=== PATIENT | male | born 1955 | race Caucasian/White ===

== ENCOUNTER 2024-05-15 10:27 | Day surgery (SDC) | payer MEDICARE, OTHER ==
[2024-05-11 13:53] VITALS: BMI 34.8
[~2024-05-15 10:27] MED LIST: LIDOCAINE 1% (10MG/ML) FOR IV START INTRADERMA PRN; ONDANSETRON 4 MG/2 ML VIAL IVP PRN
[2024-05-15 11:18] VITALS: TEMP 997.8
[2024-05-15] MEDS: LACTATED RINGERS 1,000 ML IV SCH (11:35)
[2024-05-15] MEDS: IV FLUID CONTINUATION 1,000 ML IV ONE (12:08)
[2024-05-15] MEDS ORDERED: PROPOFOL 10 MG/ML 20 ML VIAL IV ONE (12:22)
--- NOTE | 2024-05-15 12:30 | P.PCN ---
Date of Procedure: 05/15/24 Procedure(s) Performed: BRIEF HISTORY: Patient is a 69-year-old pleasant white male scheduled for an elective colonoscopy as a part of screening for colon cancer. PROCEDURE PERFORMED: Colonoscopy with snare polypectomy. PREOPERATIVE DIAGNOSIS: Screening for colon cancer. IV sedation per Anesthesia. PROCEDURE: After informed consent was obtained, the patient, was brought into the endoscopy unit. IV sedation was administered by Anesthesia under continuous monitoring. Digital rectal examination was normal. Initially the Olympus CF-160 flexible video colonoscope was then inserted in the rectum, gradually advanced into the cecum without any difficulty. Careful examination was performed as the scope was gradually being withdrawn. Ileocecal valve and the appendiceal orifice were visualized and appeared normal. Prep was excellent. Mucosa of the cecum, had a 5 mm sessile polyp removed by cold snare polypectomy. Ascending colon, transverse colon, appeared normal. The descending colon there was an 8 mm polyp removed by cold snare polypectomy. Rest of the descending colon, sigmoid colon, and rectum appeared normal. Retroflexion was performed in the rectum and no lesions were seen. The patient tolerated the procedure well. IMPRESSION: 5 mm cecal polyp status post cold snare polypectomy 8 mm descending colon polyp status post cold snare polypectomy RECOMMENDATIONS: Findings of this examination were discussed with the patient as well as his family. He was advised to follow-up with the biopsy results. If the biopsy reveals adenoma he can have repeat colonoscopy in 5 years..
[2024-05-15 12:53] VITALS: BP 122/69; PULSE 68; RESP 20
== END 2024-05-15 13:18 | disposition home or self-care (01) ==
LOC: ORWHC2ENDO 10:27
PROVIDERS: ATTEND Internal Medicine Gastroenterology
CPT/HCPCS: 45385; 88305

== ENCOUNTER → 2024-05-28 | Outpatient (CLI) | payer MEDICARE, OTHER ==
[2024-05-28 14:57] LABS: HCT 46.7 % (39.6-50.0); HGB 15.5 g/dL (13.0-17.0); MCH 29.8 pg (27.0-32.0); MCHC 33.2 g/dL (32.0-37.0); MCV 89.6 FL (80.0-97.0); Mean Platelet Volume 10.4 FL (9.5-12.2); NRBC Per 100 WBC 0 X 10*3/uL (0.00-0.01); Platelet Count 207 X 10*3/uL (140-440); RBC 5.21 X 10*6/uL (4.40-5.60); RDW 13.2 % (11.5-14.5); WBC 7.59 X 10*3/uL (4.50-10.00)
[2024-05-28 15:06] LABS: Blood Urea Nitrogen 14.2 mg/dL (9.0-27.0); Carbon Dioxide 27.5 mmol/L (21.6-31.8); Chloride 104 mmol/L (96-109); Potassium 4.4 mmol/L (3.5-5.5); Sodium 141 mmol/L (135-145)
== END | disposition home or self-care (01) ==
LOC: LABPAT 09:41
PROVIDERS: ATTEND Internal Medicine Interventional Cardiology
DX: Z01.812 Encounter for preprocedural laboratory examination (principal); R94.39 Abnormal result of other cardiovascular function study
CPT/HCPCS: 36415; 80051; 82565; 84520; 85027

== ENCOUNTER → 2024-06-27 | Day surgery (SDC) | payer MEDICARE, OTHER ==
[~2024-06-27] MED LIST changes: +ALPRAZolam 0.25 MG TAB PO PRN; +ALPRAZolam 0.5 MG TAB PO PRN; +ASPIRIN 325 MG TAB PO ONE; +ATORVASTATIN 20 MG TAB PO SCH; +ATORVASTATIN 80 MG TAB PO ONE; +FINASTERIDE 5 MG TAB PO SCH; -LIDOCAINE 1% (10MG/ML) FOR IV START INTRADERMA PRN; +LOSARTAN 25 MG TAB PO SCH; +METOPROLOL TARTRATE 25 MG TAB PO SCH; +NITROGLYCERIN SL TABS 0.4 MG TAB SUBLINGUAL PRN; -ONDANSETRON 4 MG/2 ML VIAL IVP PRN; +RX INFO: IV CONTRAST WAS GIVEN 1 EACH MISC MISCELLANE PRN; +SODIUM CHLORIDE 0.9% 1,000 ML IV SCH; +busPIRone HCl 10 MG TAB PO SCH; +oxyBUTYnin chloride 5 MG TAB PO SCH
[2024-06-27] MEDS: IV FLUID CONTINUATION 1,000 ML IV ONE (06:25)
[2024-06-27] MEDS: SODIUM CHLORIDE 0.9% 1,000 ML in EMPTY BAG 1 BAG IV SCH (06:25)
[2024-06-27 06:53] VITALS: RESP 16; TEMP 98.3
[2024-06-27] MEDS: fentaNYL (PF) 50 MCG/ML 2 ML AMP IVP ONE (07:45)
[2024-06-27] MEDS: LIDOCAINE 1% INJ 10MG/ML (20 ML MDV) SQ ONE (07:46)
[2024-06-27] MEDS: HEPARIN SODIUM,PORCINE 10,000 UNIT in SODIUM CHLORIDE 0.9% 1,000 ML IRRIGATION PRN (07:46)
[2024-06-27] MEDS: HEPARIN SODIUM,PORCINE (1 ML) 2,500 UNIT in SODIUM CHLORIDE 0.9% 250 ML IRRIGATION PRN (07:46)
[2024-06-27] MEDS: VERAPAMIL SYRINGE (5 MG/10 ML) INTRAARTER ONE (07:47)
[2024-06-27] MEDS: HEPARIN SODIUM 1,000 UN/ML (10ML VL) IVP ONE (07:52)
[2024-06-27] MEDS: IOPAMIDOL-370 100ML BTL INJ ONE (07:57)
--- NOTE | 2024-06-27 08:19 | P.CARDCATH ---
Date of Procedure: 06/27/24 Description of Procedure: Cardiac Catheterization: The patient is a 69-year-old male with a known history of hypertension, hyperlipidemia and diabetes who has been complaining of dyspnea on exertion and had an abnormal MPI. Recommendations were made regarding cardiac catheterization, the risks and the complications were discussed with the patient who is in full understanding and agreement. Procedure Description: Patient was brought to [facility] in fasting semi-sedated state after receiving Fentanyl and Benadryl achieiving moderate conscious sedated state. Using Xylocaine Anesthesia and modified Seldinger technique, a 6-Trinidadian sheath was introduced in the right radial artery . Subsequently, selective coronary angiography was performed using a 5-Trinidadian 3.5 bend Froilan catheter. Multiple views of the coronary artery including hemiaxial views were obtained. The right Froilan catheter was used to cross the aortic valve and LVEDP was calculated. Following that, catheter and sheath were removed. Hemostasis was obtained with deployment of vascular band . There was no immediate complication. Patient was returned to room in stable condition. Of note, the patient received a total of 5000 units of intravenous heparin as well as intra-arterial verapamil. Findings: Left main: This is a large size vessel, bifurcating into LAD and left circumflex, left main has no obstructive disease. LAD: This is a large size vessel, reaching to the apex, giving rise to a diagonal branch, the LAD and its branches have no obstructive disease Left circumflex: This is a large nondominant vessel, giving rise to 2 obtuse marginal branch, the first 1 is very proximal. The left circumflex and its branches have no obstructive disease RCA: This is a large dominant vessel, bifurcating distally to PDA and PLV, the right coronary artery and its branches have no obstructive disease Left Ventriculogram: Not performed Hemodynamics: There was no gradient across the aortic valve, LVEDP was 10-12 mmHg Conclusion: 1. Normal coronary arteries 2. Right dominance 3. Normal LVEDP Recommendations: I see no evidence of obstructive disease, his nuclear scan represents a false positive, I will continue aggressive coronary risks modification, increasing his physical activity and reducing his weight. The findings and the recommendations were discussed with the patient and the family and they were in full understanding and agreement. Duration of sedation is 12 minutes.
[2024-06-27 19:14] VITALS: BP 130/68; PULSE 74
== END | disposition home or self-care (01) ==
LOC: CATHCVL 06:08
PROVIDERS: ATTEND Internal Medicine Interventional Cardiology
DX: I48.0 Paroxysmal atrial fibrillation (principal); I10 Essential (primary) hypertension; E78.5 Hyperlipidemia, unspecified; E11.9 Type 2 diabetes mellitus without complications; M19.90 Unspecified osteoarthritis, unspecified site; I49.9 Cardiac arrhythmia, unspecified; Z86.73 Personal history of transient ischemic attack (TIA), and cerebral infarction without residual deficits; Z87.891 Personal history of nicotine dependence; Z79.01 Long term (current) use of anticoagulants; Z79.899 Other long term (current) drug therapy
CPT/HCPCS: 93458; 99152; J1644 ×3; J2003; J3010; Q9967

== ENCOUNTER 2024-10-18 13:50 | Observation (INO) | payer MEDICARE, OTHER ==
[2024-10-18] MEDS ORDERED: VANCOMYCIN IV PER PHARMACY 1 EACH MISC MISCELLANE PRN (15:01)
--- NOTE | 2024-10-18 15:04 | ED ---
General Adult HPI - General Chief complaint: Weakness Stated complaint: flu Time Seen by Provider: 10/18/24 14:20 Source: patient Mode of arrival: wheelchair Limitations: no limitations - History of Present Illness Initial comments: Patient is a 69-year gentleman with past medical history COPD, hypertension, prior CVA with left-sided deficits presenting today for generalized weakness. Patient began having weakness, fevers, cough, shortness of breath yesterday. He was seen by his primary care provider and diagnosed with influenza. He was sent home on Tamiflu which patient has received 3 doses. Patient has had worsening generalized weakness to the point where he is unable to get up in time to use the bathroom causing him to have "accidents" of stool and urine. Patient denies urinary symptoms otherwise. He denies any falls or new back pain. Last dose of Tylenol was at noon today, 2 tablets. Cough is nonproductive of sputum or hemoptysis. Endorses nausea and vomiting but no bloody or bilious emesis. No black or bloody stools. Currently denies chest pain. - Related Data Home Medications Medication Instructions Recorded Confirmed Apixaban [Eliquis] 5 mg PO BID 05/01/24 10/18/24 Atorvastatin [Lipitor] 20 mg PO HS 05/01/24 10/18/24 Finasteride [Proscar] 5 mg PO DAILY 05/01/24 10/18/24 Fluticasone/Umeclidin/Vilanter 1 puff INHALATION RT-DAILY 05/01/24 10/18/24 [Jamalleluis Ellipta 200-62.5-25] Losartan [Cozaar] 25 mg PO HS 05/01/24 10/18/24 Metoprolol Tartrate 25 mg PO BID 05/01/24 10/18/24 busPIRone HCL 10 mg PO BID 05/01/24 10/18/24 oxyBUTYnin chloride [Ditropan] 5 mg PO BID 05/01/24 10/18/24 Docusate [Colace] 100 mg PO DAILY 10/18/24 10/18/24 Mv-Min/Folic/K1/Lycopen/Lutein 1 tab PO DAILY 10/18/24 10/18/24 [Centrum Silver Men Tablet] Oseltamivir [Tamiflu] 75 mg PO Q12HR 10/18/24 10/18/24 Allergies Allergy/AdvReac Type Severity Reaction Status Date / Time lisinopril Allergy Cough Verified 10/18/24 15:31 Review of Systems ROS Statement: Those systems with pertinent positive or pertinent negative responses have been documented in the HPI. ROS Other: All systems not noted in ROS Statement are negative. Past Medical History Past Medical History: Atrial Fibrillation, COPD, CVA/TIA, Hyperlipidemia, Hypertension, Osteoarthritis (OA), Prostate Disorder Additional Past Medical History / Comment(s): BPH, bladder stimulator implanted to lower back (Axonic). 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 hx rectal bleeding. History of Any Multi-Drug Resistant Organisms: None Reported Additional Past Surgical History / Comment(s): bladder stimulator, kidney stones removed Past Anesthesia/Blood Transfusion Reactions: No Reported Reaction Additional Past Anesthesia/Blood Transfusion Reaction / Comment(s): No hx of blood transfusion. Past Psychological History: Depression Smoking Status: Former smoker - Past Family History Mother Family Medical History: Cancer, Hypertension Additional Family Medical History / Comment(s): breast cancer Father Family Medical History: COPD Sister(s) Family Medical History: Hypertension General Exam - General Exam Comments Initial Comments: PE: CONSTITUTIONAL: [no apparent distress, ill-appearing, nontoxic] SKIN: [warm, dry, no jaundice, hives or petechiae] EYES: Pupils are equally round, extraocular movements intact without nystagmus, clear conjunctiva, non-icteric sclera HENT: Normocephalic, atraumatic, dry mucus membranes, oropharynx clear without exudates NECK: , Full range of motion, normal appearance PULMONARY: Wheezes throughout all lung gamble, good air movement bilaterally, no rhonchi rales or crackles no accessory muscle use and no stridor CARDIOVASCULAR: Tachycardia, regular rate, rhythm, normal S1 and S2. No appreci ated murmurs, rubs or gallops. Strong radial pulses with intact distal perfusion. No lower extremity edema GASTROINTESTINAL: Soft, active bowel sounds throughout, non-tender, non- distended, no palpable masses, no rebound or guarding. No hepatosplenomegaly MUSCULOSKELETAL: Extremities have no gross deformity, no edema, redness, or swelling. No calf swelling NEUROLOGIC:_a/o x 3, GCS 15, normal mentation and speech. Moves all extremities x 4 without motor or sensory deficit PSYCHIATRIC:_normal mood and affect, thought process is clear and linear Limitations: no limitations Course Vital Signs 10/18/24 10/18/24 10/18/24 13:52 15:26 15:49 Temperature 98.5 F Pulse Rate 136 H 127 H 130 H Respiratory 17 20 18 Rate Blood Pressure 135/76 104/78 123/87 O2 Sat by Pulse 91 L 93 L 94 L Oximetry 10/18/24 10/18/24 10/18/24 17:09 17:25 17:34 Temperature Pulse Rate 109 H 105 H 105 H Respiratory 18 20 Rate Blood Pressure 116/85 136/83 O2 Sat by Pulse 95 97 Oximetry 10/18/24 10/18/24 10/18/24 17:40 17:51 21:00 Temperature Pulse Rate 100 112 H 110 H Respiratory 18 Rate Blood Pressure 148/88 O2 Sat by Pulse 93 L Oximetry 10/18/24 10/18/24 10/19/24 21:32 21:45 00:00 Temperature Pulse Rate 108 H 108 H 112 H Respiratory 20 Rate Blood Pressure 146/92 O2 Sat by Pulse 95 Oximetry 10/19/24 10/19/24 10/19/24 05:59 07:59 08:09 Temperature Pulse Rate 93 95 93 Respiratory 20 18 18 Rate Blood Pressure 151/86 O2 Sat by Pulse 94 L 95 Oximetry 10/19/24 10/19/24 10/19/24 08:50 12:06 12:17 Temperature Pulse Rate 102 H 94 96 Respiratory 18 18 18 Rate Blood Pressure 160/97 O2 Sat by Pulse 92 L Oximetry 10/19/24 13:17 Temperature 98.1 F Pulse Rate 103 H Respiratory 18 Rate Blood Pressure 112/70 O2 Sat by Pulse 93 L Oximetry EKG Findings - EKG Comments: EKG Findings:: EKG interpretation, sinus tachycardia, rate 125 bpm NJ interval 141 ms QT/QTc 310/384 ms, normal axis, no ST elevations or depressions, no arrhythmia Medical Decision Making - Medical Decision Making Was pt. sent in by a medical professional or institution (, PA, FURNACE MASON, urgent care, hospital, or alf...) When possible be specific @ -Patient was sent in by his primary care provider Did you speak to anyone other than the patient for history (EMS, parent, family, police, friend...)? What history was obtained from this source @Patient's daughter assisted in providing history, stating patient has had episodes of incontinence of stool and urine as he has not been able to get up to the bathroom fast enough due to weakness Did you review nursing and triage notes (agree or disagree)? Why? @ -I reviewed nursing and triage notes Were old charts reviewed (outside hosp., previous admission, EMS record, old EKG, old radiological studies, urgent care reports/EKG's, alf records)? Report findings @ -Medical records reviewed Differential Diagnosis (chest pain, altered mental status, abdominal pain women, abdominal pain men, vaginal bleeding, weakness, fever, dyspnea, syncope, headache, dizziness, GI bleed, back pain, seizure, CVA, palpatations, mental health, musculoskeletal)? @Differential Weakness: Hypoglycemia, shock, sepsis, hyponatremia, anemia, infection, NC, ETOH, adverse medicine reaction, overdose, stroke, this is not meant to be an all-inclusive list. EKG interpreted by me (3pts min.). @ -As above X-rays interpreted by me (1pt min.). @See interpretation below CT interpreted by me (1pt min.). @ -None done U/S interpreted by me (1pt. min.). @ -None done What testing was considered but not performed or refused? (CT, X-rays, U/S, labs)? Why? @ -None What meds were considered but not given or refused? Why? @ -None Did you discuss the management of the patient with other professionals (nessa valenzuela i.e. , PA, FURNACE MASON, lab, RT, psych nurse, social sciences professor, cabinetmaker apprentice, teacher, staff mine warfare officer, keycase assembler)? Give summary @ -No Was smoking cessation discussed for >3mins.? @ -No Was critical care preformed (if so, how long)? @ -No Were there social determinants of health that impacted care today? How? (Homelessness, low income, unemployed, alcoholism, drug addiction, transportation, low edu. Level, literacy, decrease access to med. care, correction, rehab)? @ -No Was there de-escalation of care discussed even if they declined (Discuss DNR or withdrawal of care, Hospice)? @ -No What co-morbidities impacted this encounter? (DM, HTN, Smoking, COPD, CAD, Cancer, CVA, ARF, Chemo, Hep., AIDS, mental health diagnosis, sleep apnea, morbid obesity)? @Prior CVA, COPD, atrial fibrillation on Eliquis, hypertension Was patient admitted / discharged? Hospital course, mention meds given and route, prescriptions, significant lab abnormalities, going to OR and other pertinent info. @ -Admission- patient is a 69-year-old gentleman presenting today for generalized weakness 1 day after being diagnosed with influenza. on arrival temp is 98.5 however on my assessment he is warm to the touch, oral temp for myself is 99.9 degrees. Suspect core temp to be 1 degree higher than this. Last dose of Tylenol was at noon. Patient unable to take NSAIDs as he is on Eliquis. Otherwise patient has wheezes bilaterally, without rhonchi rales or crackles. No lower extremity edema. Discussed with patient and daughter plan for IV fluids, broad workup, patient will receive antibiotics and sepsis workup as well as he does meet SIRS criteria, is tachycardic and febrile though I suspect the symptoms are more likely secondary to influenza as opposed to acute infection. Rocephin azithromycin ordered. Anticipate admission I personally reviewed chest x-ray, noted mild cardiomegaly, no focal consolidations or pleural effusions, radiologist did note bilateral central perihilar peribronchial cuffing consistent with small airway disease from acute asthma exacerbation no suspicious peripheral focal infiltrate noted. I personally reviewed labs, they are overall reassuring. On reassessment status post breathing treatments, patient's breath sounds have improved and wheezing is decreased, there was still present. Due to patient's weakness making it difficult to care for himself at home and severity of COPD exacerbation he will be admitted for observation. I updated patient and his daughter the findings and plan of care to which they were agreeable. Case was discussed with Dr. Bautista, who kindly accepted patient for admission. Undiagnosed new problem with uncertain prognosis? @ -No Drug Therapy requiring intensive monitoring for toxicity (Heparin, Nitro, Insulin, Cardizem)? @ -No Were any procedures done? @ -No Diagnosis/symptom? @Influenza, COPD exacerbation, generalized weakness Acute, or Chronic, or Acute on Chronic? @Acute Uncomplicated (without systemic symptoms) or Complicated (systemic symptoms)? @Complicated Side effects of treatment? @ -No Exacerbation, Progression, or Severe Exacerbation? @ -No Poses a threat to life or bodily function? How? (Chest pain, USA, NC, pneumonia, PE, COPD, DKA, ARF, appy, cholecystitis, CVA, Diverticulitis, Homicidal, Suicidal, threat to staff... and all critical care pts) @Yes if left untreated could progress to fulminant respiratory failure and - Lab Data Result diagrams: 10/21/24 06:21 10/21/24 06:16 Lab Results 10/18/24 10/18/24 10/18/24 Range/Units 15:24 15:24 15:24 WBC 8.7 (3.8-10.6) k/uL RBC 5.51 (4.30-5.90) m/uL Hgb 16.8 (13.0-17.5) gm/dL Hct 48.5 (39.0-53.0) % MCV 88.1 (80.0-100.0) fL MCH 30.5 (25.0-35.0) pg MCHC 34.6 (31.0-37.0) g/dL RDW 13.0 (11.5-15.5) % Plt Count 178 (150-450) k/uL MPV 7.3 Neutrophils % 79 % Lymphocytes % 12 % Monocytes % 6 % Eosinophils % 1 % Basophils % 0 % Neutrophils # 6.8 (1.3-7.7) k/uL Lymphocytes # 1.0 (1.0-4.8) k/uL Monocytes # 0.6 (0-1.0) k/uL Eosinophils # 0.1 (0-0.7) k/uL Basophils # 0.0 (0-0.2) k/uL PT 11.9 (10.0-12.5) sec INR 1.1 (<1.2) APTT 26.6 (22.0-30.0) sec Sodium 137 (137-145) mmol/L Potassium 4.0 (3.5-5.1) mmol/L Chloride 100 (98-107) mmol/L Carbon Dioxide 25 (22-30) mmol/L Anion Gap 12 mmol/L BUN 20 (9-20) mg/dL Creatinine 1.05 (0.66-1.25) mg/dL Est GFR (CKD-EPI)AfAm 85 (>60 ml/min/1.73 sqM) Est GFR (CKD-EPI)NonAf 74 (>60 ml/min/1.73 sqM) Glucose 159 H (74-99) mg/dL Plasma Lactic Acid Jeffrey (0.7-2.0) mmol/L Calcium 9.1 (8.4-10.2) mg/dL Total Bilirubin 1.3 (0.2-1.3) mg/dL AST 30 (17-59) U/L ALT 21 (4-49) U/L Alkaline Phosphatase 99 (38-126) U/L Troponin I (0.000-0.034) ng/mL NT-Pro-B Natriuret Pep 316 pg/mL Total Protein 7.8 (6.3-8.2) g/dL Albumin 4.3 (3.5-5.0) g/dL Influenza Type A (PCR) (Not Detectd) Influenza Type B (PCR) (Not Detectd) RSV (PCR) (Not Detectd) SARS-CoV-2 (PCR) (Not Detectd) 10/18/24 10/18/24 10/18/24 Range/Units 15:24 15:24 15:24 WBC (3.8-10.6) k/uL RBC (4.30-5.90) m/uL Hgb (13.0-17.5) gm/dL Hct (39.0-53.0) % MCV (80.0-100.0) fL MCH (25.0-35.0) pg MCHC (31.0-37.0) g/dL RDW (11.5-15.5) % Plt Count (150-450) k/uL MPV Neutrophils % % Lymphocytes % % Monocytes % % Eosinophils % % Basophils % % Neutrophils # (1.3-7.7) k/uL Lymphocytes # (1.0-4.8) k/uL Monocytes # (0-1.0) k/uL Eosinophils # (0-0.7) k/uL Basophils # (0-0.2) k/uL PT (10.0-12.5) sec INR (<1.2) APTT (22.0-30.0) sec Sodium (137-145) mmol/L Potassium (3.5-5.1) mmol/L Chloride (98-107) mmol/L Carbon Dioxide (22-30) mmol/L Anion Gap mmol/L BUN (9-20) mg/dL Creatinine (0.66-1.25) mg/dL Est GFR (CKD-EPI)AfAm (>60 ml/min/1.73 sqM) Est GFR (CKD-EPI)NonAf (>60 ml/min/1.73 sqM) Glucose (74-99) mg/dL Plasma Lactic Acid Jeffrey 1.4 (0.7-2.0) mmol/L Calcium (8.4-10.2) mg/dL Total Bilirubin (0.2-1.3) mg/dL AST (17-59) U/L ALT (4-49) U/L Alkaline Phosphatase (38-126) U/L Troponin I <0.012 (0.000-0.034) ng/mL NT-Pro-B Natriuret Pep pg/mL Total Protein (6.3-8.2) g/dL Albumin (3.5-5.0) g/dL Influenza Type A (PCR) Detected A (Not Detectd) Influenza Type B (PCR) Not Detected (Not Detectd) RSV (PCR) Not Detected (Not Detectd) SARS-CoV-2 (PCR) Not Detected (Not Detectd) Disposition Clinical Impression: COPD exacerbation, Influenza, Generalized weakness Disposition: ADMITTED IP TO THIS HOSP Condition: Stable
[2024-10-18] MEDS: methylPREDNISolone SOD SUCCI 125 MG/2 ML VIAL IV STA (15:43)
[2024-10-18 15:53] LABS: Basophils % (A) 0 %; Eosinophils # (A) 0.1 k/uL (0-0.7); Eosinophils % (A) 1 %; HCT 48.5 % (39.0-53.0); HGB 16.8 gm/dL (13.0-17.5); Lymphocytes % (A) 12 %; MCH 30.5 pg (25.0-35.0); MCHC 34.6 g/dL (31.0-37.0); MCV 88.1 fL (80.0-100.0); Mean Platelet Volume 7.3; Monocytes # (A) 0.6 k/uL (0-1.0); Monocytes % (A) 6 %; Neutrophils # (A) 6.8 k/uL (1.3-7.7); Neutrophils % (A) 79 %; Platelet Count 178 k/uL (150-450); RBC 5.51 m/uL (4.30-5.90); WBC 8.7 k/uL (3.8-10.6)
[2024-10-18 16:03] LABS: INR 1.1 (<1.2); Partial Thromboplastin Time 26.6 sec (22.0-30.0); Prothrombin Time 11.9 sec (10.0-12.5)
[2024-10-18 16:15] LABS: ALT 21 U/L (4-49); AST 30 U/L (17-59); African American GFR (CKD) 85 (>60 ml/min/1.73 sqM); Albumin 4.3 g/dL (3.5-5.0); Alkaline Phosphatase 99 U/L (38-126); Anion Gap 12 mmol/L; Blood Urea Nitrogen 20 mg/dL (9-20); Calcium 9.1 mg/dL (8.4-10.2); Carbon Dioxide 25 mmol/L (22-30); Chloride 100 mmol/L (98-107); Glucose 159 mg/dL (74-99); Non-African American GFR(CKD) 74 (>60 ml/min/1.73 sqM); Sodium 137 mmol/L (137-145); Total Bilirubin 1.3 mg/dL (0.2-1.3); Total Protein 7.8 g/dL (6.3-8.2)
[2024-10-18] MEDS: LACTATED RINGERS 1,000 ML IV SCH (16:20)
[2024-10-18 16:22] LABS: NT-Pro-B-Type Natriuretic Pept 316 pg/mL
[2024-10-18] MEDS: AZITHROMYCIN 500 MG in SODIUM CHLORIDE 0.9% 250 ML IVPB STA (16:24)
[2024-10-18 16:27] LABS: Influenza A Detected (Not Detectd); Influenza B Not Detected (Not Detectd); RSV Not Detected (Not Detectd)
--- NOTE | 2024-10-18 16:29 | XR ---
EXAMINATION TYPE: XR chest 2V DATE OF EXAM: 10/18/2024 CLINICAL INDICATION: Male, 69 years old with history of cough, flu, wheezing bilaterally, TECHNIQUE: Frontal and lateral views of the chest are obtained. COMPARISON: None FINDINGS: Low lung volumes and cardiomegaly are present. There is central perihilar peribronchial cuf fing. There is no suspicious peripheral focal air space opacity, pleural effusion, or pneumothorax se en. The osseous structures are intact. IMPRESSION: Bilateral central perihilar peribronchial cuffing consistent with small airway disease fr om acute asthma exacerbation. No suspicious peripheral focal infiltrate noted. [facility], , 10/18/2024 4:27 PM
[2024-10-18] MEDS ORDERED: NALOXONE 0.4 MG/ML 1 ML VIAL IVP PRN (17:19)
[2024-10-18] MEDS ORDERED: IPRATROPIUM-ALBUTEROL 3 ML NEB INHALATION PRN (17:19)
[2024-10-18] MEDS ORDERED: BENZONATATE 100 MG CAP PO PRN (17:19)
[2024-10-18] MEDS: ALBUTEROL NEBULIZED 2.5 MG/3 ML INHALATION SCH (17:25)
[2024-10-18] MEDS: IPRATROPIUM 0.5 MG/2.5 ML NEBU INHALATION STA (17:26)
[2024-10-18] MEDS: ONDANSETRON 4 MG/2 ML VIAL IVP STA (17:30)
[2024-10-18] MEDS: VANCOMYCIN 1,750 MG in SODIUM CHLORIDE 0.9% 500 ML 500 ML IVPB STA (17:32)
[2024-10-18] MEDS: ACETAMINOPHEN TAB 325 MG TAB PO SCH (18:47)
[2024-10-18] MEDS: METOPROLOL TARTRATE 25 MG TAB PO SCH (20:44)
[2024-10-18] MEDS: oxyBUTYnin chloride 5 MG TAB PO SCH (20:44)
[2024-10-18] MEDS: LOSARTAN 25 MG TAB PO SCH (20:44)
[2024-10-18] MEDS: APIXABAN 5 MG TAB PO SCH (20:44)
[2024-10-18] MEDS: busPIRone HCl 10 MG TAB PO SCH (20:44)
[2024-10-18] MEDS: OSELTAMIVIR 75 MG CAP PO SCH (20:44)
[2024-10-18] MEDS: ATORVASTATIN 20 MG TAB PO SCH (20:44)
[2024-10-18] MEDS: IPRATROPIUM-ALBUTEROL 3 ML NEB INHALATION SCH (21:30)
[2024-10-19] MEDS: VANCOMYCIN 1,750 MG in SODIUM CHLORIDE 0.9% 500 ML 500 ML IVPB SCH (05:58)
[2024-10-19 06:20] LABS: Amorphous Sediment,Urine Rare /hpf; Appearance,Urine Cloudy (Clear); Bilirubin,Urine Negative (Negative); Blood,Urine Small (Negative); Color,Urine Yellow; Glucose,Urine (UA) Negative (Negative); Hyaline Casts,Urine 3 /lpf (0-2); Ketones,Urine 1+ (Negative); Leukocyte Esterase,Urine Negative (Negative); Mucus,Urine Rare /hpf; Nitrite,Urine Negative (Negative); PH, Urine 5.5 (5.0-8.0); Protein,Urine 1+ (Negative); RBC,Urine 25 /hpf (0-5); Specific Gravity,Urine 1.031 (1.001-1.035); Urobilinogen,Urine <2.0 mg/dL (<2.0); WBC,Urine <1 /hpf (0-5)
[2024-10-19 06:30] LABS: African American GFR (CKD) >90 (>60 ml/min/1.73 sqM); Anion Gap 7 mmol/L; Blood Urea Nitrogen 22 mg/dL (9-20); Calcium 8.6 mg/dL (8.4-10.2); Carbon Dioxide 31 mmol/L (22-30); Chloride 100 mmol/L (98-107); Glucose 179 mg/dL (74-99); Non-African American GFR(CKD) >90 (>60 ml/min/1.73 sqM); Potassium 3.8 mmol/L (3.5-5.1); Sodium 138 mmol/L (137-145)
[2024-10-19] MEDS: SYMBICORT 160-4.5 MCG INHALER INHALATION SCH (07:59)
[2024-10-19 08:15] LABS: Basophils # (A) 0.01 X 10*3/uL (0.00-0.10); Basophils % (A) 0.1 %; Eosinophils # (A) 0 X 10*3/uL (0.04-0.35); Eosinophils % (A) 0 %; HCT 43.2 % (39.6-50.0); HGB 14.8 g/dL (13.0-17.0); Lymphocytes % (A) 10.5 %; MCHC 34.3 g/dL (32.0-37.0); MCV 87.4 FL (80.0-97.0); Mean Platelet Volume 10.6 FL (9.5-12.2); Monocytes # (A) 0.53 X 10*3/uL (0.20-1.00); Monocytes % (A) 6.2 %; NRBC Per 100 WBC 0 X 10*3/uL (0.00-0.01); Neutrophils # (A) 7.13 X 10*3/uL (1.80-7.70); Neutrophils % (A) 82.9 %; Platelet Count 192 X 10*3/uL (140-440); RBC 4.94 X 10*6/uL (4.40-5.60); RDW 13.1 % (11.5-14.5)
[2024-10-19] MEDS: MULTIVITAMINS, THERA 1 EACH TAB PO SCH (08:52)
[2024-10-19] MEDS: FINASTERIDE 5 MG TAB PO SCH (08:53)
[2024-10-19] MEDS: methylPREDNISolone SOD SUCCI 40 MG/ML 1 ML VIAL IV SCH (08:53)
[2024-10-19] MEDS: DOCUSATE 100 MG CAP PO SCH (08:53)
[2024-10-19] MEDS ORDERED: predniSONE 20 MG TAB PO SCH (09:00)
--- NOTE | 2024-10-19 11:42 | P.CNPUL ---
History of Present Illness Consult date: 10/19/24 Requesting physician: Justin Bautista Reason for consult: dyspnea, cough Chief complaint: Shortness of breath, cough, congestion, weakness History of present illness: This is a 69-year-old male patient with a known history of atrial fibrillation anticoagulated with Eliquis, CVA, hypertension, hyperlipidemia, degenerative joint disease, benign prostatic hyperplasia, chronic obstructive pulmonary disease, former smoker. He presented to the emergency room yesterday with a 1 to 2-day history of increasing shortness of breath, cough, congestion and weakness. Chest x-ray reveals bilateral central perihilar peribronchial cuffing consistent with small airway disease from acute asthma exacerbation. No suspicious infiltrate noted. 192. Sodium 138. Potassium 3.8. Bicarb 31. BUN 22. Creatinine 0.81. Glucose 179. Troponin negative x 3. proBNP 316. Viral screen positive for influenza A. He is seen today in consultation in the emergency department. Currently sitting up in a stretcher. Awake and alert in no acute distress. Maintaining O2 saturations in the 90s on 2 L/min per nasal cannula. He has been afebrile. Hemodynamically stable. Review of Systems REVIEW OF SYSTEMS: CONSTITUTIONAL: Positive for generalized weakness. Denies any recent signif icant weight loss or weight gain. EYES: Denies change in vision. EARS, NOSE, MOUTH, THROAT: Denies headaches, denies sore throat. CARDIOVASCULAR: Denies chest pain, palpitations or syncopal episodes. RESPIRATORY: Positive for shortness of breath, cough, congestion no hemoptysis. GASTROINTESTINAL: Denies change in appetite, denies abdominal pain GENITOURINARY: Denies hematuria, denies infections. MUSKULOSKELETAL: Denies pain, denies swelling. INTEGUMENTARY: Denies rash, denies eczema. NEUROLOGICAL: Denies recent memory loss, no recent seizure activity. PSYCHIATRIC: Denies anxiety, denies depression. HEMATOLOGIC/LYMPHATIC: Denies anemia, denies enlarged lymph nodes. Past Medical History Past Medical History: Atrial Fibrillation, COPD, CVA/TIA, Hyperlipidemia, Hypertension, Osteoarthritis (OA), Prostate Disorder Additional Past Medical History / Comment(s): BPH, bladder stimulator implanted to lower back ([employer]). 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 hx rectal bleeding. History of Any Multi-Drug Resistant Organisms: None Reported Additional Past Surgical History / Comment(s): bladder stimulator, kidney stones removed Past Anesthesia/Blood Transfusion Reactions: No Reported Reaction Additional Past Anesthesia/Blood Transfusion Reaction / Comment(s): No hx of blood transfusion. Past Psychological History: Depression Smoking Status: Former smoker - Past Family History Mother Family Medical History: Cancer, Hypertension Additional Family Medical History / Comment(s): breast cancer Father Family Medical History: COPD Sister(s) Family Medical History: Hypertension Medications and Allergies Home Medications Medication Instructions Recorded Confirmed Type Apixaban [Eliquis] 5 mg PO BID 05/01/24 10/18/24 History Atorvastatin [Lipitor] 20 mg PO HS 05/01/24 10/18/24 History Finasteride [Proscar] 5 mg PO DAILY 05/01/24 10/18/24 History Fluticasone/Umeclidin/Vilanter 1 puff INHALATION RT-DAILY 05/01/24 10/18/24 History [Trelegy Ellipta 200-62.5-25] Losartan [Cozaar] 25 mg PO HS 05/01/24 10/18/24 History Metoprolol Tartrate 25 mg PO BID 05/01/24 10/18/24 History busPIRone HCL 10 mg PO BID 05/01/24 10/18/24 History oxyBUTYnin chloride [Ditropan] 5 mg PO BID 05/01/24 10/18/24 History Docusate [Colace] 100 mg PO DAILY 10/18/24 10/18/24 History Mv-Min/Folic/K1/Lycopen/Lutein 1 tab PO DAILY 10/18/24 10/18/24 History [Centrum Silver Men Tablet] Oseltamivir [Tamiflu] 75 mg PO Q12HR 10/18/24 10/18/24 History Allergies Allergy/AdvReac Type Severity Reaction Status Date / Time lisinopril Allergy Cough Verified 10/18/24 15:31 Physical Exam Vitals: Vital Signs Temp Pulse Resp BP Pulse Ox 10/19/24 08:50 102 H 18 160/97 92 L 10/19/24 08:09 93 18 95 10/19/24 07:59 95 18 10/19/24 05:59 93 20 151/86 94 L 10/19/24 00:00 112 H 20 146/92 95 10/18/24 21:45 108 H 10/18/24 21:32 108 H 10/18/24 21:00 110 H 18 148/88 93 L 10/18/24 17:51 112 H 10/18/24 17:40 100 10/18/24 17:34 105 H 20 136/83 97 10/18/24 17:25 105 H 10/18/24 17:09 109 H 18 116/85 95 10/18/24 15:49 130 H 18 123/87 94 L 10/18/24 15:26 127 H 20 104/78 93 L 10/18/24 13:52 98.5 F 136 H 17 135/76 91 L GENERAL EXAM: Alert, obese 69-year-old male, on 2 L nasal cannula, fairly comfortable in no apparent distress. HEAD: Normocephalic. EYES: Normal reaction of pupils, equal size. NOSE: Clear with pink turbinates. THROAT: No erythema or exudates. NECK: No masses, no JVD. CHEST: No chest wall deformity. LUNGS: Equal air entry with few scattered rhonchi. CVS: S1 and S2 normal with no audible murmur, regular rhythm. ABDOMEN: No hepatosplenomegaly, normal bowel sounds, no guarding or rigidity. SPINE: No scoliosis or deformity SKIN: No rashes CENTRAL NERVOUS SYSTEM: No focal deficits, tone is normal in all 4 extremities. EXTREMITIES: There is no peripheral edema. No clubbing, no cyanosis. Peripheral pulses are intact. Results - Laboratory Findings CBC and BMP: 10/19/24 05:45 10/19/24 05:45 PT/INR, D-dimer PT 11.9 sec (10.0-12.5) 10/18/24 15:24 INR 1.1 (<1.2) 10/18/24 15:24 Abnormal lab findings: Abnormal Labs 10/18/24 10/18/24 10/19/24 15:24 15:24 05:45 Eosinophils # Carbon Dioxide 31 H BUN 22 H Glucose 159 H 179 H Urine Protein Urine Ketones Urine Blood Urine RBC Amorphous Sediment Hyaline Casts Urine Mucus Influenza Type A (PCR) Detected A 10/19/24 10/19/24 05:45 06:02 Eosinophils # 0 L Carbon Dioxide BUN Glucose Urine Protein 1+ H Urine Ketones 1+ H Urine Blood Small H Urine RBC 25 H Amorphous Sediment Rare H Hyaline Casts 3 H Urine Mucus Rare H Influenza Type A (PCR) - Diagnostic Findings Chest x-ray: image reviewed Assessment and Plan Assessment: Acute hypoxemic respiratory failure secondary to an acute exacerbation of chronic obstructive pulmonary disease complicated by influenza A Acute influenza A infection Chronic obstructive pulmonary disease Former smoker History of atrial fibrillation anticoagulated with Eliquis History of CVA Hypertension Hyperlipidemia Degenerative joint disease Benign prostatic hyperplasia Plan: The patient was seen and evaluated Imaging, labs and medications reviewed Initiate DuoNeb inhalations Initiate Symbicort Initiate a prednisone taper Continue Tamiflu Check a procalcitonin Anticoagulated with Eliquis Titrate down the FiO2 as tolerated Increase his activity as tolerated We will continue to follow and make further recommendations based on his clinical status I have personally seen and examined the patient, performed the documentation and the assessment and plan as written. Number of minutes spent on the visit: 20 Dictation was produced using [employer] dictation software. Please excuse any grammatical, word or spelling errors.
--- NOTE | 2024-10-19 15:18 | P.HPIM ---
History of Present Illness H&P Date: 10/18/24 Chief Complaint: Weakness/shortness of breath 69-year gentleman with past medical history COPD, hypertension, prior CVA with left-sided deficits presenting today for generalized weakness. Patient began having weakness, fevers, cough, shortness of breath yesterday. He was seen by his primary care provider and diagnosed with influenza. He was sent home on Tamiflu which patient has received 3 doses. Patient has had worsening generalized weakness to the point where he is unable to get up in time to use the bathroom causing him to have "accidents" of stool and urine. Patient denies urinary symptoms otherwise. He denies any falls or new back pain. Last dose of Tylenol was at noon today, 2 tablets. Cough is nonproductive of sputum or hemoptysis. Endorses nausea and vomiting but no bloody or bilious emesis. No black or bloody stools. Currently denies chest pain. Chest x-ray reveals bilateral central perihilar peribronchial cuffing consistent with small airway disease from acute asthma exacerbation. No suspicious infiltrate noted. Blood work reveals sodium 138. Potassium 3.8. Bicarb 31. BUN 22. Creatinine 0.81. Glucose 179. Troponin negative x 3. proBNP 316. - Viral screen positive for influenza A. Review of Systems REVIEW OF SYSTEMS: CONSTITUTIONAL: No fever, no malaise, no fatigue. HEENT: No recent visual problems or hearing problems. Denied any sore throat. CARDIOVASCULAR: No chest pain, orthopnea, PND, no palpitations, no syncope. PULMONARY: No shortness of breath, no cough, no hemoptysis. GASTROINTESTINAL: No diarrhea, no nausea, no vomiting, no abdominal pain. NEUROLOGICAL: No headaches, no weakness, no numbness. HEMATOLOGICAL: Denies any bleeding or petechiae. GENITOURINARY: Denies any burning micturition, frequency, or urgency. MUSCULOSKELETAL/RHEUMATOLOGICAL: Denies any joint pain, swelling, or any muscle pain. ENDOCRINE: Denies any polyuria or polydipsia. The rest of the 14-point review of systems is negative. Past Medical History Past Medical History: Atrial Fibrillation, COPD, CVA/TIA, Hyperlipidemia, Hypertension, Osteoarthritis (OA), Prostate Disorder Additional Past Medical History / Comment(s): BPH, bladder stimulator implanted to lower back (Axonic). uses walker, 2021 stroke- left sided paralysis, needs assist dressing, NO BP OR LABS TO LEFT ARM. hx rectal bleeding. History of Any Multi-Drug Resistant Organisms: None Reported Additional Past Surgical History / Comment(s): bladder stimulator, kidney stones removed Past Anesthesia/Blood Transfusion Reactions: No Reported Reaction Additional Past Anesthesia/Blood Transfusion Reaction / Comment(s): No hx of blood transfusion. Past Psychological History: Depression Smoking Status: Former smoker - Past Family History Mother Family Medical History: Cancer, Hypertension Additional Family Medical History / Comment(s): breast cancer Father Family Medical History: COPD Sister(s) Family Medical History: Hypertension Medications and Allergies Home Medications Medication Instructions Recorded Confirmed Type Apixaban [Eliquis] 5 mg PO BID 05/01/24 10/18/24 History Atorvastatin [Lipitor] 20 mg PO HS 05/01/24 10/18/24 History Finasteride [Proscar] 5 mg PO DAILY 05/01/24 10/18/24 History Fluticasone/Umeclidin/Vilanter 1 puff INHALATION RT-DAILY 05/01/24 10/18/24 History [Trelegy Ellipta 200-62.5-25] Losartan [Cozaar] 25 mg PO HS 05/01/24 10/18/24 History Metoprolol Tartrate 25 mg PO BID 05/01/24 10/18/24 History busPIRone HCL 10 mg PO BID 05/01/24 10/18/24 History oxyBUTYnin chloride [Ditropan] 5 mg PO BID 05/01/24 10/18/24 History Docusate [Colace] 100 mg PO DAILY 10/18/24 10/18/24 History Mv-Min/Folic/K1/Lycopen/Lutein 1 tab PO DAILY 10/18/24 10/18/24 History [Centrum Silver Men Tablet] Oseltamivir [Tamiflu] 75 mg PO Q12HR 10/18/24 10/18/24 History Allergies Allergy/AdvReac Type Severity Reaction Status Date / Time lisinopril Allergy Cough Verified 10/18/24 15:31 Physical Exam Vitals: Vital Signs Temp Pulse Resp BP Pulse Ox 10/18/24 17:51 112 H 10/18/24 17:40 100 10/18/24 17:34 105 H 20 136/83 97 10/18/24 17:25 105 H 10/18/24 17:09 109 H 18 116/85 95 10/18/24 15:49 130 H 18 123/87 94 L 10/18/24 15:26 127 H 20 104/78 93 L 10/18/24 13:52 98.5 F 136 H 17 135/76 91 L Intake and Output 10/18/24 10/18/24 10/18/24 06:59 14:59 22:59 Other: Weight 114.759 kg CONSTITUTIONAL: [no apparent distress, ill-appearing, nontoxic] SKIN: [warm, dry, no jaundice, hives or petechiae] EYES: Pupils are equally round, extraocular movements intact without nystagmus, clear conjunctiva, non-icteric sclera HENT: Normocephalic, atraumatic, dry mucus membranes, oropharynx clear without exudates NECK: , Full range of motion, normal appearance PULMONARY: Wheezes throughout all lung gamble, good air movement bilaterally, no rhonchi rales or crackles no accessory muscle use and no stridor CARDIOVASCULAR: Tachycardia, regular rate, rhythm, normal S1 and S2. No appreciated murmurs, rubs or gallops. Strong radial pulses with intact distal perfusion. No lower extremity edema GASTROINTESTINAL: Soft, active bowel sounds throughout, non-tender, non- distended, no palpable masses, no rebound or guarding. No hepatosplenomegaly MUSCULOSKELETAL: Extremities have no gross deformity, no edema, redness, or swelling. No calf swelling NEUROLOGIC:_a/o x 3, GCS 15, normal mentation and speech. Moves all extremities x 4 without motor or sensory deficit PSYCHIATRIC:_normal mood and affect, thought process is clear and linear Results CBC & Chem 7: 10/19/24 05:45 10/19/24 05:45 Labs: Abnormal Lab Results - Last 24 Hours (Table) 10/18/24 10/18/24 Range/Units 15:24 15:24 Glucose 159 H (74-99) mg/dL Influenza Type A (PCR) Detected A (Not Detectd) Assessment and Plan Assessment: 1. Acute hypoxic respiratory failure; related to acute exacerbation COPD -Patient remains on O2 per nasal cannula; we will plan to titrate or wean keeping O2 saturation above 92% 2. Acute exacerbation COPD; patient received IV Solu-Medrol 125 mg IV in ED; has been resumed on Solu-Medrol 30 mg IV daily; DuoNeb nebulizer treatments 4 times daily and as needed; Symbicort inhaler 160-4.52 puffs twice daily -- Chest x-ray is negative for any acute process; patient remains on IV Rocephin and vancomycin for severe acute bronchitis versus pneumonia 3. Influenza A infection; Tamiflu 75 mg every 12 hours 4. UTI; patient reports burning with urination; UA is positive for small amount of blood RBCs and rare WBC; doubt acute infection -Patient has been placed on IV Rocephin; we will continue and wait for final culture report 5. Hypertension; metoprolol 25 mg twice daily; losartan 25 mg p.o. nightly 6. Hyperlipidemia; Lipitor 20 mg p.o. nightly 7. History of atrial fibrillation; patient is rate controlled on metoprolol 25 mg twice daily and anticoagulated on Eliquis 5 mg twice daily 8. BPH/urinary incontinence; Proscar 5 mg daily; Ditropan XL 5 mg twice daily 9. Anxiety; BuSpar 10 mg twice daily DVT prophylaxis; SCD/Eliquis CODE STATUS; full code
--- NOTE | 2024-10-19 15:19 | P.PN ---
Subjective Progress Note Date: 10/19/24 69-year gentleman with past medical history COPD, hypertension, prior CVA with left-sided deficits presenting today for generalized weakness. Patient began having weakness, fevers, cough, shortness of breath yesterday. He was seen by his primary care provider and diagnosed with influenza. He was sent home on Tamiflu which patient has received 3 doses. Patient has had worsening generalized weakness to the point where he is unable to get up in time to use the bathroom causing him to have "accidents" of stool and urine. Patient denies urinary symptoms otherwise. He denies any falls or new back pain. Last dose of Tylenol was at noon today, 2 tablets. Cough is nonproductive of sputum or hemoptysis. Endorses nausea and vomiting but no bloody or bilious emesis. No black or bloody stools. Currently denies chest pain. Chest x-ray reveals bilateral central perihilar peribronchial cuffing consistent with small airway disease from acute asthma exacerbation. No suspicious infiltrate noted. Blood work reveals sodium 138. Potassium 3.8. Bicarb 31. BUN 22. Creatinine 0.81. Glucose 179. Troponin negative x 3. proBNP 316. - Viral screen positive for influenza A. Objective - Vital Signs Vital signs: Vital Signs Temp 98.5 F 10/18/24 13:52 Pulse 96 10/19/24 12:17 Resp 18 10/19/24 12:17 BP 160/97 10/19/24 08:50 Pulse Ox 92 L 10/19/24 08:50 FiO2 Intake & Output 10/18/24 10/19/24 10/19/24 18:59 06:59 18:59 Weight 114.759 kg - Exam CONSTITUTIONAL: [no apparent distress, ill-appearing, nontoxic] SKIN: [warm, dry, no jaundice, hives or petechiae] EYES: Pupils are equally round, extraocular movements intact without nystagmus, clear conjunctiva, non-icteric sclera HENT: Normocephalic, atraumatic, dry mucus membranes, oropharynx clear without exudates NECK: , Full range of motion, normal appearance PULMONARY: Wheezes throughout all lung gamble, good air movement bilaterally, no rhonchi rales or crackles no accessory muscle use and no stridor CARDIOVASCULAR: Tachycardia, regular rate, rhythm, normal S1 and S2. No appreciated murmurs, rubs or gallops. Strong radial pulses with intact distal perfusion. No lower extremity edema GASTROINTESTINAL: Soft, active bowel sounds throughout, non-tender, non- distended, no palpable masses, no rebound or guarding. No hepatosplenomegaly MUSCULOSKELETAL: Extremities have no gross deformity, no edema, redness, or swelling. No calf swelling NEUROLOGIC:_a/o x 3, GCS 15, normal mentation and speech. Moves all extremities x 4 without motor or sensory deficit PSYCHIATRIC:_normal mood and affect, thought process is clear and linear - Labs CBC & Chem 7: 10/19/24 05:45 10/19/24 05:45 Labs: Abnormal Lab Results - Last 24 Hours (Table) 10/18/24 10/18/24 10/19/24 Range/Units 15:24 15:24 05:45 Eosinophils # (0.04-0.35) X 10*3/uL Carbon Dioxide 31 H (22-30) mmol/L BUN 22 H (9-20) mg/dL Glucose 159 H 179 H (74-99) mg/dL Urine Protein (Negative) Urine Ketones (Negative) Urine Blood (Negative) Urine RBC (0-5) /hpf Amorphous Sediment (None) /hpf Hyaline Casts (0-2) /lpf Urine Mucus (None) /hpf Influenza Type A (PCR) Detected A (Not Detectd) 10/19/24 10/19/24 Range/Units 05:45 06:02 Eosinophils # 0 L (0.04-0.35) X 10*3/uL Carbon Dioxide (22-30) mmol/L BUN (9-20) mg/dL Glucose (74-99) mg/dL Urine Protein 1+ H (Negative) Urine Ketones 1+ H (Negative) Urine Blood Small H (Negative) Urine RBC 25 H (0-5) /hpf Amorphous Sediment Rare H (None) /hpf Hyaline Casts 3 H (0-2) /lpf Urine Mucus Rare H (None) /hpf Influenza Type A (PCR) (Not Detectd) Assessment and Plan Assessment: 1. Acute hypoxic respiratory failure; related to acute exacerbation COPD -Patient remains on O2 per nasal cannula; we will plan to titrate or wean keeping O2 saturation above 92% 2. Acute exacerbation COPD; patient received IV Solu-Medrol 125 mg IV in ED; has been resumed on Solu-Medrol 30 mg IV daily; DuoNeb nebulizer treatments 4 times daily and as needed; Symbicort inhaler 160-4.52 puffs twice daily -- Chest x-ray is negative for any acute process; patient remains on IV Rocephin and vancomycin for severe acute bronchitis versus pneumonia 3. Influenza A infection; Tamiflu 75 mg every 12 hours 4. UTI; patient reports burning with urination; UA is positive for small amount of blood RBCs and rare WBC; doubt acute infection -Patient has been placed on IV Rocephin; we will continue and wait for final culture report 5. Hypertension; metoprolol 25 mg twice daily; losartan 25 mg p.o. nightly 6. Hyperlipidemia; Lipitor 20 mg p.o. nightly 7. History of atrial fibrillation; patient is rate controlled on metoprolol 25 mg twice daily and anticoagulated on Eliquis 5 mg twice daily 8. BPH/urinary incontinence; Proscar 5 mg daily; Ditropan XL 5 mg twice daily 9. Anxiety; BuSpar 10 mg twice daily DVT prophylaxis; SCD/Eliquis CODE STATUS; full code
[2024-10-20 06:43] LABS: African American GFR (CKD) >90 (>60 ml/min/1.73 sqM); Anion Gap 9 mmol/L; Blood Urea Nitrogen 21 mg/dL (9-20); Calcium 8.5 mg/dL (8.4-10.2); Carbon Dioxide 28 mmol/L (22-30); Chloride 101 mmol/L (98-107); Glucose 130 mg/dL (74-99); Non-African American GFR(CKD) >90 (>60 ml/min/1.73 sqM); Potassium 3.6 mmol/L (3.5-5.1); Sodium 138 mmol/L (137-145)
[2024-10-20 09:22] LABS: Basophils # (A) 0.04 X 10*3/uL (0.00-0.10); Basophils % (A) 0.3 %; Eosinophils # (A) 0.03 X 10*3/uL (0.04-0.35); Eosinophils % (A) 0.2 %; HCT 43.3 % (39.6-50.0); HGB 13.8 g/dL (13.0-17.0); Lymphocytes % (A) 10.7 %; MCH 29.4 pg (27.0-32.0); MCHC 31.9 g/dL (32.0-37.0); MCV 92.1 FL (80.0-97.0); Mean Platelet Volume 10.8 FL (9.5-12.2); Monocytes # (A) 0.91 X 10*3/uL (0.20-1.00); Monocytes % (A) 6.5 %; NRBC Per 100 WBC 0 X 10*3/uL (0.00-0.01); Neutrophils # (A) 11.48 X 10*3/uL (1.80-7.70); Neutrophils % (A) 81.8 %; Platelet Count 175 X 10*3/uL (140-440); RDW 13.2 % (11.5-14.5); WBC 14.03 X 10*3/uL (4.50-10.00)
[2024-10-20] MEDS: predniSONE 10 MG TAB PO SCH (10:09)
--- NOTE | 2024-10-20 11:00 | P.PN ---
Subjective Progress Note Date: 10/20/24 This is a 69-year-old male patient with a known history of atrial fibrillation anticoagulated with Eliquis, CVA, hypertension, hyperlipidemia, degenerative joint disease, benign prostatic hyperplasia, chronic obstructive pulmonary disease, former smoker. He presented to the emergency room yesterday with a 1 to 2-day history of increasing shortness of breath, cough, congestion and weakness. Chest x-ray reveals bilateral central perihilar peribronchial cuffing consistent with small airway disease from acute asthma exacerbation. No suspicious infiltrate noted. 192. Sodium 138. Potassium 3.8. Bicarb 31. BUN 22. Creatinine 0.81. Glucose 179. Troponin negative x 3. proBNP 316. Viral screen positive for influenza A. He is seen today in consultation in the emergency department. Currently sitting up in a stretcher. Awake and alert in no acute distress. Maintaining O2 saturations in the 90s on 2 L/min per nasal cannula. He has been afebrile. Hemodynamically stable. The patient is seen today October 20, 2024 in follow-up on the regular medical floor. He is currently sitting up in bed. Awake and alert in no acute distress. Maintaining good O2 saturations in the 90s on 3 L/min per nasal cannula. He is continued on DuoNeb inhalations, Symbicort, Solu-Medrol. Antibiotics in the form of vancomycin and Rocephin. Procalcitonin is negative at 0.12. Blood culture reveals no growth to date. White count 14.0. Hemoglobin 13.8. Platelets 175. Sodium 138. Potassium 3.6. Bicarb 28. BUN 21. Creatinine 0.73. Glucose 130. Remains on Tamiflu for the influenza A. Objective - Vital Signs Vital signs: Vital Signs Temp 98.2 F 10/20/24 07:25 Pulse 78 10/20/24 08:24 Resp 18 10/20/24 07:25 BP 105/68 10/20/24 07:25 Pulse Ox 96 10/20/24 08:15 FiO2 Intake & Output 10/19/24 10/20/24 10/20/24 18:59 06:59 18:59 Intake Total 1550 240 Output Total 400 Balance 1550 -400 240 Weight 114.759 kg Intake: Intake, IV Titration 1550 Amount Lactated Ringers 1,000 ml 1000 @ 999 mls/hr IV Q65M [facility] Rx#:[id number] Vancomycin 1,750 mg In 500 Sodium Chloride 0.9% 500 ml 500 ml @ 167 mls/hr IVPB ONCE STA Rx#: [id number] cefTRIAXone 1 gm In 50 Sodium Chloride 0.9% 50 ml @ 100 mls/hr IVPB Q24HR [facility] Rx#:[id number] Oral 240 Output: Urine 400 Other: Voiding Method External Catheter External Catheter - Exam GENERAL EXAM: Alert, obese 69-year-old male, sitting up in bed, on 3 L nasal cannula, comfortable in no apparent distress. HEAD: Normocephalic. EYES: Normal reaction of pupils, equal size. NOSE: Clear with pink turbinates. THROAT: No erythema or exudates. NECK: No masses, no JVD. CHEST: No chest wall deformity. LUNGS: Equal air entry with few scattered rhonchi. CVS: S1 and S2 normal with no audible murmur, regular rhythm. ABDOMEN: No hepatosplenomegaly, normal bowel sounds, no guarding or rigidity. SPINE: No scoliosis or deformity SKIN: No rashes CENTRAL NERVOUS SYSTEM: No focal deficits, tone is normal in all 4 extremities. EXTREMITIES: There is no peripheral edema. No clubbing, no cyanosis. Peripheral pulses are intact. - Labs CBC & Chem 7: 10/20/24 05:14 10/20/24 05:07 Labs: Abnormal Lab Results - Last 24 Hours (Table) 10/20/24 10/20/24 Range/Units 05:07 05:14 WBC 14.03 H (4.50-10.00) X 10*3/uL MCHC 31.9 L (32.0-37.0) g/dL Immature Gran # 0.07 H (0.00-0.04) X 10*3/uL Neutrophils # 11.48 H (1.80-7.70) X 10*3/uL Eosinophils # 0.03 L (0.04-0.35) X 10*3/uL BUN 21 H (9-20) mg/dL Glucose 130 H (74-99) mg/dL Microbiology - Last 24 Hours (Table) 10/18/24 15:40 Blood Culture - Preliminary Blood Assessment and Plan Assessment: Acute hypoxemic respiratory failure secondary to an acute exacerbation of chronic obstructive pulmonary disease complicated by influenza A Acute influenza A infection Chronic obstructive pulmonary disease Former smoker History of atrial fibrillation anticoagulated with Eliquis History of CVA Hypertension Hyperlipidemia Degenerative joint disease Benign prostatic hyperplasia Plan: The patient was seen and evaluated Labs and medications reviewed Procalcitonin negative Vancomycin discontinued Consider discontinuing ceftriaxone Continue DuoNeb inhalations Continue Symbicort Continue a prednisone taper Continue Tamiflu Anticoagulated with Eliquis Titrate down the FiO2 as tolerated Increase his activity as tolerated This patient was seen independently by the pulmonary nurse practitioner addressing pulmonary issues I have personally seen and examined the patient, performed the documentation and the assessment and plan as written. Number of minutes spent on the visit: 24 Dictation was produced using [employer] dictation software. Please excuse any grammatical, word or spelling errors.
[2024-10-20] MEDS: PANTOPRAZOLE 40 MG TABLET PO SCH (11:26)
[2024-10-20 12:53] VITALS: BMI 36.3
[2024-10-20] MEDS ORDERED: VANCOMYCIN TROUGH DUE 1 EACH MISC MISCELLANE ONE (17:00)
--- NOTE | 2024-10-20 21:12 | P.PN ---
Subjective Progress Note Date: 10/20/24 69-year gentleman with past medical history COPD, hypertension, prior CVA with left-sided deficits presenting today for generalized weakness. Patient began having weakness, fevers, cough, shortness of breath yesterday. He was seen by his primary care provider and diagnosed with influenza. He was sent home on Tamiflu which patient has received 3 doses. Patient has had worsening generalized weakness to the point where he is unable to get up in time to use the bathroom causing him to have "accidents" of stool and urine. Patient denies urinary symptoms otherwise. He denies any falls or new back pain. Last dose of Tylenol was at noon today, 2 tablets. Cough is nonproductive of sputum or hemoptysis. Endorses nausea and vomiting but no bloody or bilious emesis. No black or bloody stools. Currently denies chest pain. Chest x-ray reveals bilateral central perihilar peribronchial cuffing consistent with small airway disease from acute asthma exacerbation. No suspicious infiltrate noted. Blood work reveals sodium 138. Potassium 3.8. Bicarb 31. BUN 22. Creatinine 0.81. Glucose 179. Troponin negative x 3. proBNP 316. - Viral screen positive for influenza A. 10/19/2024 Patient is seen and evaluated in follow-up on the regular medical floor. He is currently sitting up in bed. Awake and alert in no acute distress. Maintaining good O2 saturations in the 90s on 3 L/min per nasal cannula. He is continued on DuoNeb inhalations, Symbicort, Solu-Medrol. Antibiotics in the form of vancomycin and Rocephin. Procalcitonin is negative at 0.12. Blood culture reveals no growth to date. White count 14.0. Hemoglobin 13.8. Platelets 175. Sodium 138. Potassium 3.6. Bicarb 28. BUN 21. Creatinine 0.73. Glucose 130. Remains on Tamiflu for the influenza A. -Patient has been evaluated by pulmonary service and recommending to DC vancomycin; continue with DuoNeb nebulizer treatments, Rocephin and Symbicort; patient has been placed on prednisone taper Objective - Vital Signs Vital signs: Vital Signs Temp 98.2 F 10/20/24 07:25 Pulse 90 10/20/24 11:54 Resp 18 10/20/24 07:25 BP 105/68 10/20/24 07:25 Pulse Ox 96 10/20/24 08:15 FiO2 Intake & Output 10/19/24 10/20/24 10/20/24 18:59 06:59 18:59 Intake Total 1550 240 Output Total 400 Balance 1550 -400 240 Weight 114.759 kg 114.759 kg Intake: Intake, IV Titration 1550 Amount Lactated Ringers 1,000 ml 1000 @ 999 mls/hr IV Q65M [facility] Rx#:[id number] Vancomycin 1,750 mg In 500 Sodium Chloride 0.9% 500 ml 500 ml @ 167 mls/hr IVPB ONCE STA Rx#: [id number] cefTRIAXone 1 gm In 50 Sodium Chloride 0.9% 50 ml @ 100 mls/hr IVPB Q24HR [facility] Rx#:[id number] Oral 240 Output: Urine 400 Other: Voiding Method External Catheter External Catheter - Exam CONSTITUTIONAL: [no apparent distress, ill-appearing, nontoxic] SKIN: [warm, dry, no jaundice, hives or petechiae] EYES: Pupils are equally round, extraocular movements intact without nystagmus, clear conjunctiva, non-icteric sclera HENT: Normocephalic, atraumatic, dry mucus membranes, oropharynx clear without exudates NECK: , Full range of motion, normal appearance PULMONARY: Wheezes throughout all lung gamble, good air movement bilaterally, no rhonchi rales or crackles no accessory muscle use and no stridor CARDIOVASCULAR: Tachycardia, regular rate, rhythm, normal S1 and S2. No appreciated murmurs, rubs or gallops. Strong radial pulses with intact distal perfusion. No lower extremity edema GASTROINTESTINAL: Soft, active bowel sounds throughout, non-tender, non- distended, no palpable masses, no rebound or guarding. No hepatosplenomegaly MUSCULOSKELETAL: Extremities have no gross deformity, no edema, redness, or swelling. No calf swelling NEUROLOGIC:_a/o x 3, GCS 15, normal mentation and speech. Moves all extremities x 4 without motor or sensory deficit PSYCHIATRIC:_normal mood and affect, thought process is clear and linear - Labs CBC & Chem 7: 10/20/24 05:14 10/20/24 05:07 Labs: Abnormal Lab Results - Last 24 Hours (Table) 10/20/24 10/20/24 Range/Units 05:07 05:14 WBC 14.03 H (4.50-10.00) X 10*3/uL MCHC 31.9 L (32.0-37.0) g/dL Immature Gran # 0.07 H (0.00-0.04) X 10*3/uL Neutrophils # 11.48 H (1.80-7.70) X 10*3/uL Eosinophils # 0.03 L (0.04-0.35) X 10*3/uL BUN 21 H (9-20) mg/dL Glucose 130 H (74-99) mg/dL Microbiology - Last 24 Hours (Table) 10/18/24 15:40 Blood Culture - Preliminary Blood Assessment and Plan Assessment: 1. Acute hypoxic respiratory failure; related to acute exacerbation COPD -Patient remains on O2 per nasal cannula; we will plan to titrate or wean keeping O2 saturation above 92% 2. Acute exacerbation COPD; patient received IV Solu-Medrol 125 mg IV in ED; has been resumed on Solu-Medrol 30 mg IV daily; DuoNeb nebulizer treatments 4 times daily and as needed; Symbicort inhaler 160-4.52 puffs twice daily -- Chest x-ray is negative for any acute process; patient remains on IV Rocephin and vancomycin for severe acute bronchitis versus pneumonia 3. Influenza A infection; Tamiflu 75 mg every 12 hours 4. UTI; patient reports burning with urination; UA is positive for small amount of blood RBCs and rare WBC; doubt acute infection -Patient has been placed on IV Rocephin; we will continue and wait for final culture report 5. Hypertension; metoprolol 25 mg twice daily; losartan 25 mg p.o. nightly 6. Hyperlipidemia; Lipitor 20 mg p.o. nightly 7. History of atrial fibrillation; patient is rate controlled on metoprolol 25 mg twice daily and anticoagulated on Eliquis 5 mg twice daily 8. BPH/urinary incontinence; Proscar 5 mg daily; Ditropan XL 5 mg twice daily 9. Anxiety; BuSpar 10 mg twice daily DVT prophylaxis; SCD/Eliquis CODE STATUS; full code
[2024-10-21 07:48] LABS: African American GFR (CKD) >90 (>60 ml/min/1.73 sqM); Anion Gap 6 mmol/L; Blood Urea Nitrogen 16 mg/dL (9-20); Calcium 8.1 mg/dL (8.4-10.2); Carbon Dioxide 29 mmol/L (22-30); Chloride 104 mmol/L (98-107); Glucose 125 mg/dL (74-99); Non-African American GFR(CKD) >90 (>60 ml/min/1.73 sqM); Sodium 139 mmol/L (137-145)
--- NOTE | 2024-10-21 08:07 | P.PN ---
Subjective Progress Note Date: 10/21/24 This is a 69-year-old male patient with a known history of atrial fibrillation anticoagulated with Eliquis, CVA, hypertension, hyperlipidemia, degenerative joint disease, benign prostatic hyperplasia, chronic obstructive pulmonary disease, former smoker. He presented to the emergency room yesterday with a 1 to 2-day history of increasing shortness of breath, cough, congestion and weakness. Chest x-ray reveals bilateral central perihilar peribronchial cuffing consistent with small airway disease from acute asthma exacerbation. No suspicious infiltrate noted. 192. Sodium 138. Potassium 3.8. Bicarb 31. BUN 22. Creatinine 0.81. Glucose 179. Troponin negative x 3. proBNP 316. Viral screen positive for influenza A. He is seen today in consultation in the emergency department. Currently sitting up in a stretcher. Awake and alert in no acute distress. Maintaining O2 saturations in the 90s on 2 L/min per nasal cannula. He has been afebrile. Hemodynamically stable. The patient is seen today October 20, 2024 in follow-up on the regular medical floor. He is currently sitting up in bed. Awake and alert in no acute distress. Maintaining good O2 saturations in the 90s on 3 L/min per nasal cannula. He is continued on DuoNeb inhalations, Symbicort, Solu-Medrol. Antibiotics in the form of vancomycin and Rocephin. Procalcitonin is negative at 0.12. Blood culture reveals no growth to date. White count 14.0. Hemoglobin 13.8. Platelets 175. Sodium 138. Potassium 3.6. Bicarb 28. BUN 21. Creatinine 0.73. Glucose 130. Remains on Tamiflu for the influenza A. The patient is seen today October 21, 2024 in follow-up on the regular medical floor. He is currently sitting up in bed. Awake and alert in no acute distress. Feeling a bit better today compared to yesterday. He is maintaining good O2 saturations in the 90s on 3 L/min per nasal cannula. His procalcitonin was negative at 0.12. He has normal saline at KVO. He is continued on Symbicort, DuoNeb inhalations, prednisone taper and Tamiflu. Anticoagulated with Eliquis. No new labs today. Objective - Vital Signs Vital signs: Vital Signs Temp 98.9 F 10/21/24 01:06 Pulse 79 03/30/25 01:06 Resp 18 10/21/24 01:06 BP 109/68 10/21/24 01:06 Pulse Ox 94 L 10/21/24 01:06 FiO2 Intake & Output 10/20/24 10/21/24 10/21/24 18:59 06:59 18:59 Intake Total 240 Output Total 400 Balance 240 -400 Weight 114.759 kg Intake: Oral 240 Output: Urine 400 Other: Voiding Method External Catheter # Voids 1 # Bowel Movements 3 - Exam GENERAL EXAM: Alert, obese, pleasant 69-year-old male, resting comfortably in bed, on 3 L nasal cannula, in no apparent distress. HEAD: Normocephalic. EYES: Normal reaction of pupils, equal size. NOSE: Clear with pink turbinates. THROAT: No erythema or exudates. NECK: No masses, no JVD. CHEST: No chest wall deformity. LUNGS: Equal air entry with few scattered rhonchi. CVS: S1 and S2 normal with no audible murmur, regular rhythm. ABDOMEN: No hepatosplenomegaly, normal bowel sounds, no guarding or rigidity. SPINE: No scoliosis or deformity SKIN: No rashes CENTRAL NERVOUS SYSTEM: No focal deficits, tone is normal in all 4 extremities. EXTREMITIES: There is no peripheral edema. No clubbing, no cyanosis. Peripheral pulses are intact. - Labs CBC & Chem 7: 10/20/24 05:14 10/20/24 05:07 Labs: Abnormal Lab Results - Last 24 Hours (Table) 10/20/24 Range/Units 05:14 WBC 14.03 H (4.50-10.00) X 10*3/uL MCHC 31.9 L (32.0-37.0) g/dL Immature Gran # 0.07 H (0.00-0.04) X 10*3/uL Neutrophils # 11.48 H (1.80-7.70) X 10*3/uL Eosinophils # 0.03 L (0.04-0.35) X 10*3/uL Microbiology - Last 24 Hours (Table) 10/18/24 15:40 Blood Culture - Preliminary Blood Assessment and Plan Assessment: Acute hypoxemic respiratory failure secondary to an acute exacerbation of chronic obstructive pulmonary disease complicated by influenza A Acute influenza A infection Chronic obstructive pulmonary disease Former smoker History of atrial fibrillation anticoagulated with Eliquis History of CVA Hypertension Hyperlipidemia Degenerative joint disease Benign prostatic hyperplasia Plan: The patient was seen and evaluated Medications reviewed Continue DuoNeb inhalations Continue Symbicort Continue a prednisone taper Continue Tamiflu Anticoagulated with Eliquis Titrate down the FiO2 as tolerated Increase his activity as tolerated This patient was seen independently by the pulmonary nurse practitioner addressing pulmonary issues I have personally seen and examined the patient, performed the documentation and the assessment and plan as written. Number of minutes spent on the visit: 23 Dictation was produced using [employer] dictation software. Please excuse any grammatical, word or spelling errors.
[2024-10-21 08:51] LABS: Potassium 4.2 mmol/L (3.5-5.1)
[2024-10-21 11:01] LABS: Basophils # (A) 0.03 X 10*3/uL (0.00-0.10); Basophils % (A) 0.3 %; Eosinophils # (A) 0.08 X 10*3/uL (0.04-0.35); Eosinophils % (A) 0.8 %; HCT 39.3 % (39.6-50.0); HGB 12.8 g/dL (13.0-17.0); Lymphocytes % (A) 19.3 %; MCH 30.1 pg (27.0-32.0); MCHC 32.6 g/dL (32.0-37.0); MCV 92.5 FL (80.0-97.0); Monocytes % (A) 7.1 %; NRBC Per 100 WBC 0.02 X 10*3/uL (0.00-0.01); Neutrophils # (A) 7.05 X 10*3/uL (1.80-7.70); Neutrophils % (A) 71.6 %; Platelet Count 154 X 10*3/uL (140-440); RBC 4.25 X 10*6/uL (4.40-5.60); RDW 13.2 % (11.5-14.5); WBC 9.85 X 10*3/uL (4.50-10.00)
--- NOTE | 2024-10-21 13:03 | P.PN ---
Subjective Progress Note Date: 10/21/24 69-year gentleman with past medical history COPD, hypertension, prior CVA with left-sided deficits presenting today for generalized weakness. Patient began having weakness, fevers, cough, shortness of breath yesterday. He was seen by his primary care provider and diagnosed with influenza. He was sent home on Tamiflu which patient has received 3 doses. Patient has had worsening generalized weakness to the point where he is unable to get up in time to use the bathroom causing him to have "accidents" of stool and urine. Patient denies urinary symptoms otherwise. He denies any falls or new back pain. Last dose of Tylenol was at noon today, 2 tablets. Cough is nonproductive of sputum or hemoptysis. Endorses nausea and vomiting but no bloody or bilious emesis. No black or bloody stools. Currently denies chest pain. Chest x-ray reveals bilateral central perihilar peribronchial cuffing consistent with small airway disease from acute asthma exacerbation. No suspicious infiltrate noted. Blood work reveals sodium 138. Potassium 3.8. Bicarb 31. BUN 22. Creatinine 0.81. Glucose 179. Troponin negative x 3. proBNP 316. - Viral screen positive for influenza A. 10/20/2024 Patient is seen and evaluated in follow-up on the regular medical floor. He is currently sitting up in bed. Awake and alert in no acute distress. Maintaining good O2 saturations in the 90s on 3 L/min per nasal cannula. He is continued on DuoNeb inhalations, Symbicort, Solu-Medrol. Antibiotics in the form of vancomycin and Rocephin. Procalcitonin is negative at 0.12. Blood culture reveals no growth to date. White count 14.0. Hemoglobin 13.8. Platelets 175. Sodium 138. Potassium 3.6. Bicarb 28. BUN 21. Creatinine 0.73. Glucose 130. Remains on Tamiflu for the influenza A. -Patient has been evaluated by pulmonary service and recommending to DC vancomycin; continue with DuoNeb nebulizer treatments, Rocephin and Symbicort; patient has been placed on prednisone taper 10/21/2024 Patient is seen and evaluated in follow-up on the regular medical floor. He is currently sitting up in bed. Awake and alert in no acute distress. Feeling a bit better today compared to yesterday. He is maintaining good O2 saturations in the 90s on 3 L/min per nasal cannula. -- His procalcitonin was negative at 0.12. He has normal saline at KVO. --He is continued on Symbicort, DuoNeb inhalations, prednisone taper and Tamiflu. Anticoagulated with Eliquis. -Patient recommended to increase activity and titrate FiO2 as able; patient might need home oxygen -We will continue with current treatment at this time Objective - Vital Signs Vital signs: Vital Signs Temp 98.5 F 10/21/24 07:44 Pulse 74 10/21/24 08:58 Resp 18 10/21/24 07:44 BP 117/70 10/21/24 07:44 Pulse Ox 95 10/21/24 08:48 FiO2 Intake & Output 10/20/24 10/21/24 10/21/24 18:59 06:59 18:59 Intake Total 240 Output Total 400 Balance 240 -400 Weight 114.759 kg Intake: Oral 240 Output: Urine 400 Other: Voiding Method External Catheter # Voids 1 # Bowel Movements 3 - Exam CONSTITUTIONAL: [no apparent distress, ill-appearing, nontoxic] SKIN: [warm, dry, no jaundice, hives or petechiae] EYES: Pupils are equally round, extraocular movements intact without nystagmus, clear conjunctiva, non-icteric sclera HENT: Normocephalic, atraumatic, dry mucus membranes, oropharynx clear without exudates NECK: , Full range of motion, normal appearance PULMONARY: Wheezes throughout all lung gamble, good air movement bilaterally, no rhonchi rales or crackles no accessory muscle use and no stridor CARDIOVASCULAR: Tachycardia, regular rate, rhythm, normal S1 and S2. No appreciated murmurs, rubs or gallops. Strong radial pulses with intact distal perfusion. No lower extremity edema GASTROINTESTINAL: Soft, active bowel sounds throughout, non-tender, non- distended, no palpable masses, no rebound or guarding. No hepatosplenomegaly MUSCULOSKELETAL: Extremities have no gross deformity, no edema, redness, or swelling. No calf swelling NEUROLOGIC:_a/o x 3, GCS 15, normal mentation and speech. Moves all extremities x 4 without motor or sensory deficit PSYCHIATRIC:_normal mood and affect, thought process is clear and linear - Labs CBC & Chem 7: 10/21/24 06:21 10/21/24 06:16 Labs: Abnormal Lab Results - Last 24 Hours (Table) 10/21/24 Range/Units 06:16 Glucose 125 H (74-99) mg/dL Calcium 8.1 L (8.4-10.2) mg/dL Microbiology - Last 24 Hours (Table) 10/18/24 15:40 Blood Culture - Preliminary Blood
[2024-10-22 08:25] VITALS: BP 150/78; RESP 16; TEMP 98.2
[2024-10-22 11:53] VITALS: PULSE 82
[2024-10-22] MEDS ORDERED: FAMOTIDINE 20 MG/2 ML VIAL IV SCH (21:00)
--- NOTE | 2024-10-25 09:58 | P.DS ---
Providers Date of admission: 10/18/24 17:21 Expected date of discharge: 10/22/24 Attending physician: Justin Bautista MD Consults: 10/18/24 17:19 Consult Physician Routine Consulting Provider: Yefri Vera Reason/Comments: COPD Do you want consulting provider notified?: Yes, Notify in am Primary care physician: Socorro Rivera Hospital Course: Final diagnosis -Acute hypoxic respiratory failure; related to acute exacerbation COPD -Acute exacerbation COPD -Influenza A infection -Possible UTI, present on admission, symptoms resolved, likely contaminant, UTI ruled out -Hypertension -Hyperlipidemia -History of atrial fibrillation; patient is rate controlled on metoprolol 25 mg twice daily and anticoagulated on Eliquis 5 mg twice daily -BPH/urinary incontinence -History of anxiety -GI prophylaxis -DVT prophylaxis -Full code Discharge disposition Patient is being discharged in a stable condition with guarded prognosis to home. Patient will follow-up with Dr. Devyn Muñiz in the outpatient setting upon discharge. Patient is to continue with current medications and outpatient follow-up with pulmonary as scheduled. Total time taken is greater than 35 min utes. Hospital course This is a 69-year-old male who was recently admitted with increased shortness of breath with acute hypoxic respiratory failure secondary to COPD exacerbation as well as acute influenza A. Patient initially with concerns of possible UTI on admission although resolved and no further symptoms with negative urinalysis. Patient was continued on IV steroids along with DuoNeb treatments showing some improvement and evaluated for oxygen and does not qualify. Patient will be going home on prednisone taper and close outpatient follow-up with pulmonary. Please refer to other consultation notes for further HPI. Currently no reports of chest pain, shortness of breath, or palpitations. Patient is afebrile. No reports of nausea or vomiting and patient is tolerating diet. Patient will be discharged home today. Guarded prognosis and high risk for readmissions given significant comorbidities Physical exam: Gen: This is a 69-year-old male who is awake, alert and oriented x 3, well- developed, well-nourished, obese HEENT: Head is atraumatic, normocephalic. Pupils equal, round. Sclerae is anicteric. NECK: Supple. No JVD. No lymphadenopathy. No thyromegaly. LUNGS: Diminished breath sounds bilaterally with some scattered expiratory wheezes and coarse rhonchi. No intercostal retractions. HEART: S1, S2 are muffled ABDOMEN: Soft. Bowel sounds are present. No masses. No tenderness. EXTREMITIES: No pedal edema. No calf tenderness. NEUROLOGICAL: Patient is awake, alert and oriented x3. Cranial nerves 2 through 12 are grossly intact. Please refer to medication reconciliation sheet for a list of medications. The impression and plan of care has been dictated by Remedios Pro, Nurse Practitioner as directed. Dr. Antonino MD I have performed a history and examination and MDM of this patient, discussed the same with the dictator, and agree with the dictator's assessment and plan as written ,documented as a scribe. Based on total visit time, I have performed more than 50% of the visit. Patient Condition at Discharge: Stable Plan - Discharge Summary Discharge Rx Participant: No New Discharge Prescriptions: New Ipratropium-Albuterol Nebulize [Duoneb 0.5 mg-3 mg/3 ml Soln] 3 ml INHALATION RT-QID #100 each predniSONE See Taper PO DIRECTED #17 tab Acetaminophen Tab [Tylenol] 650 mg PO Q4HR tab Ipratropium-Albuterol Nebulize [Duoneb 0.5 mg-3 mg/3 ml Soln] 3 ml INHALATION RT-Q2H PRN each PRN Reason: Shortness Of Breath Or Wheezing Benzonatate [Tessalon Perles] 100 mg PO TID PRN #30 cap PRN Reason: Cough Continue oxyBUTYnin chloride [Ditropan] 5 mg PO BID Atorvastatin [Lipitor] 20 mg PO HS Losartan [Cozaar] 25 mg PO HS Finasteride [Proscar] 5 mg PO DAILY Oseltamivir [Tamiflu] 75 mg PO Q12HR Mv-Min/Folic/K1/Lycopen/Lutein [Centrum Silver Men Tablet] 1 tab PO DAILY Fluticasone/Umeclidin/Vilanter [Trelegy Ellipta 200-62.5-25] 1 puff INHALATION RT-DAILY Apixaban [Eliquis] 5 mg PO BID busPIRone HCL 10 mg PO BID Metoprolol Tartrate 25 mg PO BID Docusate [Colace] 100 mg PO DAILY Discharge Medication List Apixaban [Eliquis] 5 mg PO BID 05/01/24 [History] Atorvastatin [Lipitor] 20 mg PO HS 05/01/24 [History] Finasteride [Proscar] 5 mg PO DAILY 05/01/24 [History] Fluticasone/Umeclidin/Vilanter [Trelegy Ellipta 200-62.5-25] 1 puff INHALATION RT-DAILY 05/01/24 [History] Losartan [Cozaar] 25 mg PO HS 05/01/24 [History] Metoprolol Tartrate 25 mg PO BID 05/01/24 [History] busPIRone HCL 10 mg PO BID 05/01/24 [History] oxyBUTYnin chloride [Ditropan] 5 mg PO BID 05/01/24 [History] Docusate [Colace] 100 mg PO DAILY 10/18/24 [History] Mv-Min/Folic/K1/Lycopen/Lutein [Centrum Silver Men Tablet] 1 tab PO DAILY 10/18/24 [History] Oseltamivir [Tamiflu] 75 mg PO Q12HR 10/18/24 [History] Acetaminophen Tab [Tylenol] 650 mg PO Q4HR tab 10/22/24 [Rx] Benzonatate [Tessalon Perles] 100 mg PO TID PRN #30 cap 10/22/24 [Rx] Ipratropium-Albuterol Nebulize [Duoneb 0.5 mg-3 mg/3 ml Soln] 3 ml INHALATION RT-Q2H PRN each 10/22/24 [Rx] Ipratropium-Albuterol Nebulize [Duoneb 0.5 mg-3 mg/3 ml Soln] 3 ml INHALATION RT-QID #100 each 10/22/24 [Rx] predniSONE See Taper PO DIRECTED #17 tab 10/22/24 [Rx] Follow up Appointment(s)/Referral(s): Fab So MD [STAFF PHYSICIAN] - 11/05/24 9:30 am Socorro Rivera MD [Primary Care Provider] - 1-2 days Patient Instructions/Handouts: Influenza (GEN), COPD (Chronic Obstructive Pulmonary Disease) (GEN) Activity/Diet/Wound Care/Special Instructions: Activity follow-up Follow-up with primary care provider Follow-up with pulmonary outpatient Continue taking medications as prescribed Discharge Disposition: HOME SELF-CARE
== END 2024-10-22 14:45 | disposition home or self-care (01) ==
LOC: EC 13:50 → 6NMEDSUR 17:21
PROVIDERS: ADMIT Internal Medicine; ATTEND Internal Medicine
DX: J96.01 Acute respiratory failure with hypoxia (principal); J44.1 Chronic obstructive pulmonary disease with (acute) exacerbation; J10.1 Influenza due to other identified influenza virus with other respiratory manifestations; I10 Essential (primary) hypertension; N39.0 Urinary tract infection, site not specified; I48.91 Unspecified atrial fibrillation; E78.5 Hyperlipidemia, unspecified; N40.1 Benign prostatic hyperplasia with lower urinary tract symptoms; N39.498 Other specified urinary incontinence; F32.A Depression, unspecified; M19.90 Unspecified osteoarthritis, unspecified site; F41.9 Anxiety disorder, unspecified; I69.354 Hemiplegia and hemiparesis following cerebral infarction affecting left non-dominant side; Z87.891 Personal history of nicotine dependence; Z79.01 Long term (current) use of anticoagulants; Z79.51 Long term (current) use of inhaled steroids; Z79.899 Other long term (current) drug therapy
CPT/HCPCS: 96376; 96366 ×4; 96361; 96365; 96367; 96374; 96375; 99285; 36415; 94640 ×9; 94760 ×3; 93005; 83880; 80053; 80048 ×3; 83605; 84484 ×2; 85025 ×4; 85610; 85730; 81001; 87040; 87070; 84145; 87636; 71046; G0378 ×5; S0138 ×4; J3370 ×3; J0456; J0696 ×3; J7512 ×3; J2919 ×2

== ENCOUNTER → 2024-11-19 | Outpatient (CLI) | payer MEDICARE ==
--- NOTE | 2024-11-19 13:04 | FL ---
EXAMINATION TYPE: FL barium swallow w video DATE OF EXAM: 11/19/2024 MODIFIED SWALLOW / DEGLUTITION STUDY CLINICAL HISTORY: Oropharyngeal Dysphagia. TECHNIQUE: Deglutition study is performed utilizing thin liquid barium, barium thick pudding, and b arium coated cracker. 52 seconds of fluoro time and 0 images obtained. Total dose area product (DAP ) in uGy*m?, mGy*cm? (or similar): 103.74 COMPARISON: None. FINDINGS: The oral and pharyngeal phases show satisfactory initiation and propagation with all modali ties tested. Satisfactory mastication is seen with solid modalities tested. There is no evidence of penetration or aspiration with any modality tested. No significant pharyngeal residue was appreciate d. IMPRESSION: No aspiration identified. Please refer to speech therapist notes for further details if necessary. [facility], , 11/19/2024 1:02 PM
--- NOTE | 2024-11-19 21:25 | US ---
EXAMINATION TYPE: US thyroid st tissue head/neck DATE OF EXAM: 11/19/2024 COMPARISON: NONE CLINICAL INDICATION: Male, 69 years old with history of R13.12 Dysphagia; difficulty swallowing/choki ng TECHNIQUE: Grayscale and color Doppler imaging of the thyroid gland. FINDINGS: GLAND SIZE: Right Lobe: 5.8x1.8x1.7 cm Overall Parenchyma: heterogeneous Left Lobe: 4.7x1.7x1.7 cm Overall Parenchyma: heterogeneous Isthmus Thickness: 0.4 cm NODULES RIGHT: # of nodules measured on right: 0 1. 1.3 cm hypoechoic solid [id number] at the lower pole. 2. Benign 7 mm colloid cyst noted LEFT: # of nodules measured on left: 1 1. 0.8 X 0.7 x 0.7 cm, upper lateral, solid or almost completely solid, hypoechoic TR4 nodule, whic h is wider than tall, with ill-defined margins, without echogenic foci. ISTHMUS: # of nodules measured in the isthmus: 0 Outreach Coordinator notes: ill defined hypoechoic heterogenous areas throughout Outreach Coordinator notes: Bilateral neck scanned, no evidence of lymphadenopathy. IMPRESSION: 1. Borderline to mild thyromegaly. Diffuse glandular heterogeneity, consider multinodular goiter. 2. A discrete TR4 nodule on either side measuring up to 1.3 cm at the right lower pole and 8 mm at th e left upper pole. TR4: If nodule size is ? 1.5 cm, FNA is recommended. If nodule size is ? 1.0 cm, follow-up imaging at 1, 2, 3, and 5 years is recommended. [facility], , 11/19/2024 9:23 PM
== END | disposition home or self-care (01) ==
LOC: RADFLMAIN 10:09
PROVIDERS: ATTEND Family Medicine
DX: E04.1 Nontoxic single thyroid nodule (principal); R13.12 Dysphagia, oropharyngeal phase; R09.89 Other specified symptoms and signs involving the circulatory and respiratory systems
CPT/HCPCS: 74230; 76536

== ENCOUNTER 2025-01-11 11:44 | Day surgery (SDC) | payer MEDICARE ==
[2025-01-10 09:27] VITALS: BMI 34.4
[2025-01-11 13:06] VITALS: TEMP 97.3
[2025-01-11] MEDS: IV FLUID CONTINUATION 1,000 ML IV ONE ×2 (13:13→13:44)
[2025-01-11] MEDS: LACTATED RINGERS 1,000 ML IV SCH (13:13)
[2025-01-11] MEDS ORDERED: LIDOCAINE 2% (PF) 20 MG/ML 5 ML VIAL ONE (13:45)
[2025-01-11] MEDS ORDERED: PROPOFOL 10 MG/ML 20 ML VIAL IV ONE (13:45)
--- NOTE | 2025-01-11 13:56 | P.PCN ---
Date of Procedure: 01/11/25 Procedure(s) Performed: BRIEF HISTORY: Patient is a 69-year-old, pleasant, white male scheduled for an upper endoscopy as a part evaluation of intermittent dysphagia to solids and liquids for the last several months duration. Symptoms are progressively getting worse lately.. Recent modified barium swallow was unremarkable with no evidence of aspiration. PROCEDURE PERFORMED: Esophagogastroduodenoscopy with biopsy and dilation. PREOPERATIVE DIAGNOSIS: Intermittent dysphagia to solids. IV sedation per anesthesia. PROCEDURE: After informed consent was obtained, the patient was brought into the endoscopy unit. IV sedation was administered by Anesthesia under continuous monitoring. Initially the Olympus GIF-140 video endoscope was inserted into the mouth. Esophagus intubated without any difficulty. It was gradually advanced into the stomach and duodenum and carefully examined. The bulb and the second part of the duodenum appeared normal. The scope at this time was withdrawn to the stomach, adequately insufflated with air, and upon careful examination, mucosa of the antrum, body, cardia and the fundus appeared normal. The scope was then withdrawn into the esophagus. Small hiatal hernia noted. The GE junction was located at 39 cm from the incisors. There was a widely patent distal es ophageal Schatzki's ring identified that was dilated using 20 mm TTS balloon for 30 seconds. The esophagus appeared normal. There were no erosions or ulcerations seen, multiple biopsies were done from mid and distal esophagus rule out eosinophilic esophagitis and the patient tolerated the procedure well. IMPRESSION: 1. Distal esophageal Schatzki's ring status post balloon dilation using 20 mm TTS balloon 2. Small hiatal hernia. RECOMMENDATIONS: The findings of this examination were discussed with the patient as well as his family. He was advised to follow-up with the biopsy results. He will be seen in the office in 2 to 3 weeks..
[2025-01-11 14:19] VITALS: BP 118/83; PULSE 88; RESP 14
== END 2025-01-11 14:42 | disposition home or self-care (01) ==
LOC: ORWHC2ENDO 11:44
PROVIDERS: ATTEND Internal Medicine Gastroenterology
DX: K22.2 Esophageal obstruction (principal); K44.9 Diaphragmatic hernia without obstruction or gangrene; I10 Essential (primary) hypertension; E78.5 Hyperlipidemia, unspecified; N40.0 Benign prostatic hyperplasia without lower urinary tract symptoms; F31.9 Bipolar disorder, unspecified; Z86.73 Personal history of transient ischemic attack (TIA), and cerebral infarction without residual deficits; Z88.8 Allergy status to other drugs, medicaments and biological substances; Z79.01 Long term (current) use of anticoagulants; Z79.899 Other long term (current) drug therapy; Z87.442 Personal history of urinary calculi
CPT/HCPCS: 88305; 43239; 43249; J2704; J2003; C1726